=== PATIENT | male | born 1940 | race Caucasian/White ===

== ENCOUNTER 2017-05-24 11:09 | Inpatient (IN) ==
[2017-05-24] MEDS ORDERED: Albuterol 2.5 MG/3 ML NEBULIZER IH ONE (12:03)
[2017-05-24] MEDS ORDERED: CeFAZolin Syr 2,000MG/20 ML 2,000 MG/20 ML SYRINGE IVPB ONE (12:03)
[2017-05-24] MEDS ORDERED: Albuterol 2.5 MG/3 ML NEBULIZER ONE (12:12)
[2017-05-24] MEDS ORDERED: *HR* Rocuronium Bromide 50 MG/5 ML VIAL ONE ×2 (12:13→15:45)
[2017-05-24] MEDS ORDERED: Dexamethasone 4 MG/ML VIAL ONE ×2 (12:13→15:45)
[2017-05-24] MEDS ORDERED: Lidocaine -MPF 4% 5 ML AMPUL ONE ×2 (12:13→15:45)
[2017-05-24] MEDS ORDERED: *HR* Succinylcholine 200 MG/10 ML VIAL IVP ONE ×2 (12:13→15:45)
[2017-05-24] MEDS ORDERED: *HR* FentaNYL (PF) 100 MCG/2 ML VIAL ONE ×3 (12:13→17:12)
[2017-05-24] MEDS ORDERED: *HR* Midazolam HCl 2 MG/2 ML VIAL ONE ×2 (12:13→15:46)
[2017-05-24] MEDS ORDERED: *HR* Propofol 200 MG/20 ML VIAL IVP ONE ×2 (12:13→15:45)
[2017-05-24] MEDS ORDERED: Ondansetron 4 MG/2 ML VIAL ONE ×2 (12:13→15:45)
[2017-05-24] MEDS ORDERED: Lidocaine -MPF 2% 2 ML VIAL ONE ×2 (12:13→15:45)
[2017-05-24] MEDS ORDERED: Plasma-Lyte A (PH 7.4) 1,000 ML IVC SCH (12:15)
--- NOTE | 2017-05-24 12:28 | Anesthesia Evaluation PreOp ---
Date of Encounter: 05/24/17 Time of Encounter: 12:26 - Past History Planned Operation: Fem-Fem bypass graft Cardiac History: HTN, Hyperlipidemia, Cardiac Stent (patient denies any coronary stenting) Pulmonary History: Smoker, Pack/yr (1ppd x 60 years), COPD PROJECT BUILDER History: Other (Dementia, anxiety) Anesthesia History: No Prior Anesthetic Complications, Past Anesthesia (Left hip ,3 Left Knee replacements, Left RCR, Colon resection, bilteral iliac stents) Alcohol Use: none Drug use: none Medications and Allergies Aspirin Enteric Coated [Aspirin EC] 81 mg PO DAILY 10/06/14 [History] Clopidogrel [Plavix] 75 mg PO DAILY 10/06/14 [History] Diazepam [Valium] 10 mg PO BID 10/06/14 [History] Lisinopril [Zestril] 20 mg PO DAILY 10/06/14 [History] Finasteride [Proscar] 5 mg PO DAILY 05/16/17 [History] Rosuvastatin Calcium [Crestor] 40 mg PO DAILY 05/16/17 [History] 3 Allergy/AdvReac Type Severity Reaction Status Date / Time No Known Allergies Allergy Verified 05/24/17 12:30 - Meds/Allergy Pre-op Review Medications Reviewed: Yes Allergies Reviewed: Yes Beta Blockers on Current Med List: No Anesthesia Results - Labs Laboratory Tests 05/15/17 05/15/17 05/15/17 13:50 13:50 13:50 WBC 7.1 Hgb 14.0 Hct 42.7 Plt Count 183 INR 1.0 Sodium 140 Potassium 3.9 Chloride 106 Carbon Dioxide 27 BUN 17 Creatinine 0.88 Stress 05/18/17 EF-56% Mild Septal dyskenesis, otherwise normal LV function - Imaging EKG: report reviewed (SINUS RHYTHM WITH OCCASIONAL SUPRAVENTRICULAR PREMATURE COMPLEXES) Anesthesia Exam O2 Sat Height 1.73 m Height 1.73 m Height 1.73 m Weight 77.564 kg Weight 77.564 kg Weight 77.564 kg O2 Sat by Pulse Oximetry 97 O2 Sat by Pulse Oximetry 97 Vital Signs Temp Pulse Resp BP Pulse Ox 98.4 F 57 18 135/62 97 05/24/17 12:08 05/24/17 12:08 05/24/17 12:08 05/24/17 12:08 05/24/17 12:08 NPO (# of Hours): > 8 hrs Pain Scale: 0 Pain Scale Used: Numeric (1 - 10) - HEENT Pupil (Motor): Pupils equal, EOMI Mallampati: I Teeth: Edentulous Denture Type: Upper: Complete, Lower: Complete Oral Opening: Greater than 3 - PROJECT BUILDER LOC: Oriented PROJECT BUILDER Motor: Normal RUE, Normal LUE, Normal RLE, Normal LLE, Normal Face PROJECT BUILDER Sensory: Normal: RUE, LUE, RLE, LLE, Face - Cardiac Rhythm: Regular Murmur: None JVD: No Carotid Bruit: No - Pulmonary Breath Sounds: bilateral Clear Respiratory Effort: Symmetrical Anesthesia Assess/Plan ASA Score: 3 Modified Beckie Scale for Level of Consciousness: Cooperative, oriented, and tranquil Anesthetic Plan: General Autologous Blood: Yes Monitoring Plan: Standard Monitors, A-Line Recovery Plan: PACU
[2017-05-24] MEDS ORDERED: Heparin 1,000 UNITS/500 mL 500 ML ONE (12:34)
--- NOTE | 2017-05-24 16:56 | History & Physical Report ---
Date of Encounter: 05/24/17 Time of Encounter: 16:50 24 Hour HP Update - Instructions Instructions: If the History and Physical is less than 30 days old and was completed prior to A.M. admission and or procedure and has NOT been updated on calendar day of procedure please complete this update prior to performing procedure. - Update Patient reports changes in Medical Condition: No Changes in examination, assessment, or condition: No Changes in Medication: No Preop tests/diagnostics Reviewed: Yes Surgery Remains Indicated: Yes Consent for Planned Operative Procedure(s) Verified: Yes - Pre-Operative Checklist Preoperative Checklist Indicated: Yes Prophylactic Antibiotic Ordered: Yes (Vancomycin due to MRSA risk) Home Medications Include Beta Mulugeta: No Beta Mulugeta Taken Today (Day of Surgery): No Beta Mulu[place]a Taken Yesterday (Day Prior to Surgery): No Is VTE Prophylaxis Indicated?: Yes
[2017-05-24] MEDS ORDERED: Heparin 1,000 UNITS/500 mL 1,500 ML ONE (17:12)
[2017-05-24] MEDS ORDERED: Vancomycin 1,000 MG VIAL ONE (17:12)
[2017-05-24] MEDS ORDERED: Isovue-300 50 ML VIAL IVP ONE (17:13)
--- NOTE | 2017-05-24 17:33 | Discharge Summary ---
Orders not resulted at time of discharge: Pending orders 05/24/17 Red Blood Cells [BBK] Routine Date of Encounter: 05/25/17 Time of Encounter: 13:50 (SEEN BY DR. PERDOMO) - Discharge Diagnosis (1) Atherosclerosis of [place] arteries of extremities with intermittent claudication, bilateral legs Priority: Primary Status: Acute Comments: The patient underwent a right femoral endarterectomy and a FEM-FEM bypass. He was discharged in stable condition on postoperative day #1 without complications. (2) Essential hypertension Priority: Secondary Status: Chronic (3) Mixed hyperlipidemia Priority: Secondary Status: Chronic Comments: He was counseled regarding smoking cessation. 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 He was hemodynamically stable without evidence of ongoing blood loss. - Hospital Course Hospital course: Mr. Flores is a 77 year old male with hypertension, hyperlipidemia, tobacco abuse and COPD who was found to have disabling claudication. He underwent a femoral endarterectomy and a femoral to femoral artery bypass on 05/24/17. He tolerated the procedure well and was discharged on postoperative day # 1 without complications. Time spent discussing smoking cessation with patient: 3 to 10 minutes - Time Spent with Patient Total time spent providing and/or coordinating discharge services: - Discharge Medications Home Medications: Aspirin Enteric Coated [Aspirin EC] 81 mg PO HS 10/06/14 [History] Clopidogrel [Plavix] 75 mg PO HS 10/06/14 [History] Lisinopril [Zestril] 20 mg PO HS 10/06/14 [History] Finasteride [Proscar] 5 mg PO HS 05/16/17 [History] Rosuvastatin Calcium [Crestor] 40 mg PO HS 05/16/17 [History] Levalbuterol [Xopenex INH] 2 puff IH Q4-6H PRN 05/24/17 [History] OxyCODONE/APAP 5/325 [Percocet 5/325 MG] 1 each PO Q6HR PRN 5 Days #20 tablet [Rx] diazePAM [Valium] 10 mg PO HS 05/24/17 [History] Allergies/Adverse Reactions: 3 Allergy/AdvReac Type Severity Reaction Status Date / Time No Known Allergies Allergy Verified 05/24/17 12:56 Primary care physician: PCP NONE Procedure(s) Performed: Right Femoral artery endarterectomy and right common femoral to left common femoral artery bypass. Discharging clinician: Lino Massey Anticipated date of discharge: 05/25/17 - Patient Status Disposition: Home, Self-Care Condition: Fair - Discharge Instructions Instructions: Oxycodone/Acetaminophen (By mouth), Femoropopliteal Bypass (DC), Peripheral Vascular Disorders (DC) Follow Up With: Karuna Gutierres MD [Partnered Physician] - 07/05/17 11:00 am (Please arrive 20 minutes early for your appointment. If you have to cancel please call [phone] within 24 hours of your appointment. I sent an email to the customs patrol officer to see if we can get the appoinment moved up some) Lino Massey MD [Partnered Physician] - 07/11/17 3:50 pm () Additional Instructions: Remove groin dressings tomorrow. Keep surgical sites dry for total 5 days following surgery. Resume usual home medications. Follow-up with Dr. Massey as scheduled. Prescription for by mouth analgesia has been written for the patient upon discharge.
[2017-05-24] MEDS ORDERED: *HR* Morphine 10 MG/ML VIAL ONE (18:32)
[2017-05-24] MEDS ORDERED: *HR* Morphine 2 MG/ML SYRINGE IVP PRN (18:33)
[2017-05-24] MEDS ORDERED: MORPHINE SUL Oral CONC 10 MG/0.5 ML ORAL.SYG SL PRN (18:33)
[2017-05-24] MEDS ORDERED: *HR* Labetalol 100 MG/20 ML MDV IVP PRN (18:33)
--- NOTE | 2017-05-24 18:36 | Anesthesia Procedures ---
Date of Encounter: 05/24/17 Time of Encounter: 17:10 Procedures: Anesthesia - Arterial Line Consent obtained: written consent Time out performed: Yes Sedation: Fentanyl (mcg): 100 Supplemental Oxygen via Nasal Cannula (L/min): 2 Local Anesthetic: Lidocaine 1% Amount of Anesthetic used (mls): 1 Size (Gauge): 20 Length (inches): 1 3/4 Technique Used: sterile prep, guide wire technique, direct puncture technique Post-Procedure: line taped into place, dry sterile dressing placed Patient tolerated procedure: well, no complications Complications: none Site: Radial L Vitals: BP 126/80, HR 65, Spo2 99, rr 16
[2017-05-24] MEDS ORDERED: *HR* Heparin 5,000 UNIT/ML VIAL ONE (18:40)
[2017-05-24] MEDS ORDERED: Acetaminophen IV 1,000 MG/100 ML INFUS..BTL ONE (18:50)
[2017-05-24] MEDS ORDERED: EPHEDrine 50 MG/ML VIAL ONE (18:50)
[2017-05-24] MEDS ORDERED: Neostigmine Methylsulfate 3 MG/3 ML SYRINGE ONE (19:30)
--- NOTE | 2017-05-24 20:40 | Anesthesia Evaluation Post Op ---
Date of Encounter: 05/24/17 Time of Encounter: 20:40 - Vital Signs Vital Signs: Vital Signs/O2 Sat, Most Current Temp Pulse Resp BP Pulse Ox 97.5 F L 55 16 149/64 100 05/24/17 20:09 05/24/17 20:29 05/24/17 20:29 05/24/17 20:29 05/24/17 20:29 - Lungs Lungs: Clear Ascult./Percussion - Airway Airway: Non-obstructed - Cardiovascular Regular Rate - Mental Status Mental Status: Asleep with brisk response to light stimulation - Pain Pain Scale: 0 Pain Scale used: Numeric (1 - 10) - Nausea Vomiting Nausea Vomiting: Not Present - Hydration Hydration: NPO, Palmer catheter - Discharge PostOp Status: Transfer Patient to floor
--- NOTE | 2017-05-24 20:59 | Operative Note ---
Date of procedure: 05/24/17 Pre-op diagnosis: Peripheral vascular disease with rest pain Post-op diagnosis: same Procedure: 1. Right common and deep femoral artery endarterectomy. 2. Right common femoral to left common femoral artery bypass with 6mm PTFE graft. Complications: None Anesthesia: GETA Surgeon: Lino Massey Was there an integration assistant present: No Estimated blood loss (cc): 50 Specimen: Right femoral plaque Condition: stable Disposition: PACU Procedure in Detail: Indications: The patient is a 77 year old male with a history of peripheral vascular disease with ulceration. He was found to have occluded left common iliac, left external iliac and proximal left common femoral stents. Due to his symptoms, revascularization was recommended to reduce his symptoms and his risk of limb loss. Procedure: The patient was identified in the preoperative area. The risks, benefits, and alternatives of the procedure were discussed. All questions were answered. The patient was taken to the operating room and placed in supine position on the operating room table. After the induction of general endotracheal anesthesia, he was cleaned and draped in normal sterile fashion. An oblique incision was made over the right groin sharply. Hemostasis was obtained with electrocautery. Through a process of blunt, sharp, and electrocautery dissection, the right femoral vessels were dissected circumferentially and surrounded with vessel loops. An oblique incision was then made over the left groin sharply. Hemostasis was obtained with electrocautery. Through a process of blunt, sharp, and electrocautery dissection, the left femoral vessels were dissected circumferentially and surrounded with vessel loops. A stent could be palpated in the proximal left common femoral artery. A graft was tunneled between the right and left femoral incisions. The patient received 5000 units of heparin intravenously. An arteriotomy was then made in the right commn femoral artery. A large, partially occlusive plaque was noted to be present in the common femoral artery and extending into the deep femoral artery. Release of the distal vesel loop revealed minimal retrograde flow from the profunda femoris artery. The arteriotomy was extended onto the deep femroal artery. Using a dental freer a right common and deep femoral endarterectomy was performed. Endpoints were inspected and no elevated flaps were noted. The deep femoral artery was noted to have significant retrograde flow after the endarterectomy. The graft was then cut to fit the arterial defect. The graft was sutured in place to the artery with a running 6-0 Prolene. The vessels were flushed through the graft. Heparinized saline was infused into the graft lumen. The graft was clamped with an atraumatic clamp. Flow was restored in the right femoral vessels. Tension was applied to the left femoral artery vessel loops. An arteriotomy was made in the left common femoral artery up to the level of the stent and onto the superficial femroal artery. Inspection of the lumen revealed that the stnet was well encorporated into the vessel wall and could not be removed. The distal end of the graft was cut to fit the arteriotomy. The graft was anastamosed with a running 6-0 Prolene. Prior to completing the anastamosis, the left femoral vessels were flushed through the graft anastamosis and heparin was infused into the lumen. The anastamosis was completed and flow was restored in the left lower extremity. Thrombin and gelfoam were used at the proximal anastamosis. Polyphasic signals were noted distal to the anastamoses. The wounds were irrigated with antibiotic-containing saline. Platelet rich and platelet poor plasma were infused into the wounds. Meticulous hemostasis was obtained throughout the wound with electrocautery. Wounds were reapproximated with layers of 2-0 and 3-0 Vicryl. Skin was reapproximated with 3-0 Monocryl. Sterile dressing was applied. The patient was extubated and taken to recovery room in stable condition.
[2017-05-24] MEDS ORDERED: OXYCODONE Oral CONC 10 MG/0.5 ML ORAL.SYG SL PRN ×2 (21:03)
[2017-05-24] MEDS ORDERED: Acetaminophen 325 MG TABLET PO PRN (21:03)
[2017-05-24] MEDS ORDERED: 0.9 % Sodium Chloride 1,000 ML IVC SCH (21:03)
[2017-05-24] MEDS ORDERED: *HR* HYDROcodone/Acet 5/325 mg TABLET PO PRN (21:03)
[2017-05-24] MEDS ORDERED: Naloxone 0.4 MG/ML INJ IVP PRN (21:03)
[2017-05-24] MEDS ORDERED: Ondansetron 4 MG/2 ML VIAL IVP PRN (21:03)
[2017-05-24] MEDS ORDERED: Levalbuterol 1 PUFF INHALER IH PRN (21:03)
[2017-05-24] MEDS ORDERED: *HR* Labetalol 20 MG/4 ML SYRINGE IVP PRN (21:03)
[2017-05-24] MEDS ORDERED: Lisinopril 20 MG TABLET PO SCH (21:03)
[2017-05-24] MEDS ORDERED: Aspirin Enteric Coated 81 MG Tablet PO SCH (21:03)
[2017-05-24] MEDS ORDERED: diazePAM 10 MG TABLET PO SCH (21:03)
[2017-05-24] MEDS ORDERED: Finasteride 5 MG TABLET PO SCH (21:03)
[2017-05-24] MEDS ORDERED: *HR* OxyCODONE Immed Rel 5 MG TABLET PO PRN (21:03)
[2017-05-24] MEDS ORDERED: *HR* LORazepam 2 MG/ML VIAL IVP PRN (21:03)
[2017-05-24] MEDS: *HR* Metoprolol 5 MG/5 ML VIAL IVP SCH (22:10)
[2017-05-25] MEDS: *HR* Metoprolol 5 MG/5 ML VIAL IVP SCH ×3 (00:20→12:31)
[2017-05-25] MEDS ORDERED: ceFAZolin 2,000 MG in 0.9 % Sodium Chloride 100 ML IVPB SCH (00:30)
[2017-05-25 04:55] LABS: Basophils % 0.1 %; Hematocrit 37.3 % (37.5-50.1); Hemoglobin 12.7 g/dL (12.9-16.9); Immature Granulocytes % 0.3 % (0-4); Lymphocytes # 1.1 K/mcL (0.6-4.6); Mean Corpuscular Hemoglobin 32.2 pg (28.0-33.3); Mean Corpuscular Volume 94.7 fL (83.0-100.0); Mean Platelet Volume 11.3 fL (9.4-12.4); Monocytes # 0.4 K/mcL (0.0-1.3); Monocytes % 3.9 %; Neutrophils # 8.4 K/mcL (1.6-8.9); Platelet Count 174 K/mcL (140-400); Red Blood Count 3.94 M/mcL (4.19-5.50); Red Cell Distribution Width 12.4 % (11.5-14.5); Segmented Neutrophils % 84.7 %
[2017-05-25 05:14] LABS: BUN/Creatinine Ratio 16 (6-26); Blood Urea Nitrogen 15 mg/dL (8-23); Calcium 8.6 mg/dL (8.6-10.3); Carbon Dioxide 25 mEq/L (23-29); Chloride 107 mEq/L (98-107); Glucose 113 mg/dL (70-105); Osmolality,Calculated 290 (280-300); Potassium 4.2 mEq/L (3.5-5.1); Sodium 139 mEq/L (136-145); eGFR For African Americans > 60 (> 60); eGFR For Non-African Americans > 60 (> 60)
[2017-05-25] MEDS ORDERED: *HR* Heparin 5,000 UNIT/ML VIAL SQ SCH ×2 (06:00)
[2017-05-25 11:16] VITALS: BP 120/63
--- NOTE | 2017-05-25 13:53 | Discharge Summary ---
Orders not resulted at time of discharge: Pending orders 05/24/17 Red Blood Cells [BBK] Routine 05/24/17 20:08 Surgical Pathology [PTH] Routine Date of Encounter: 05/25/17 Time of Encounter: 13:51 - Discharge Diagnosis (1) PAD (peripheral artery disease) Priority: Primary Status: Acute Comments: Patient has significant lower extremity claudication. The patient has had previous interventions in [place]. Dr. Massey performed a femoral-femoral bypass graft with PTFE yesterday. Patient has no active symptoms in the left lower extremity today. Patient has multiphasic Doppler signals over the femoral -femoral graft. (2) COPD (chronic obstructive pulmonary disease) Priority: Secondary Status: Chronic Comments: Patient has chronic COPD Qualifiers: COPD type: unspecified COPD Qualified Code(s): J44.9 - Chronic obstructive pulmonary disease, unspecified (3) Hypertension Priority: Secondary Status: Chronic Comments: Patient is under medical treatment for chronic hypertension Qualifiers: Hypertension type: essential hypertension Qualified Code(s): I10 - Essential (primary) hypertension - Hospital Course Hospital course: Mr. Flores is a 77 year old male With significant lower extremity vascular occlusive disease. Patient has been treated at an outside hospital. Patient was seen by Dr. Massey. He underwent a femoral-femoral bypass graft to revascularize the lower extremity. Patient is felt fit for discharge on the afternoon of postoperative day #1. Instructions were given to the patient in regards to wound care. Patient is to follow-up with Dr. Massey. - Time Spent with Patient Total time spent providing and/or coordinating discharge services: - Discharge Medications Home Medications: Aspirin Enteric Coated [Aspirin EC] 81 mg PO HS 10/06/14 [History] Clopidogrel [Plavix] 75 mg PO HS 10/06/14 [History] Lisinopril [Zestril] 20 mg PO HS 10/06/14 [History] Finasteride [Proscar] 5 mg PO HS 05/16/17 [History] Rosuvastatin Calcium [Crestor] 40 mg PO HS 05/16/17 [History] Levalbuterol [Xopenex INH] 2 puff IH Q4-6H PRN 05/24/17 [History] OxyCODONE/APAP 5/325 [Percocet 5/325 MG] 1 each PO Q6HR PRN 5 Days #20 tablet [Rx] diazePAM [Valium] 10 mg PO HS 05/24/17 [History] Allergies/Adverse Reactions: 3 Allergy/AdvReac Type Severity Reaction Status Date / Time No Known Allergies Allergy Verified 05/24/17 12:56 Date of admission: 05/24/17 20:57 Primary care physician: PCP NONE Consults: None Procedure(s) Performed: Femoral-femoral bypass graft with 6 mm PTFE Discharging clinician: Miguel Quiñonez Anticipated date of discharge: 05/25/17 Exam Vital Signs, Last 4 Hours Temp Pulse Resp BP Pulse Ox 05/25/17 11:00 97.9 F 47 14 120/63 94 General: Present: Conversant, No Apparent Distress, Well developed HEENT: Present: Atraumatic Cardiac: Present: Reg Rate and Rhythm Lungs: Present: Decreased breath sounds Neuro: Present: Alert and responsive Abdomen: Present: Soft, Non-tender Vascular: Present: Normal capillary refill, Surgical incisions (Patient has dressings over the femoral incisions that are intact.). Absent: Clubbing, Cyanosis, Edema Skin: Present: No rashes noted on visualized skin - Patient Status Disposition: Home, Self-Care Condition: Fair Functional capacity at discharge: independent ambulation Overall status at discharge: patient is progressing back to baseline - Discharge Instructions Instructions: Oxycodone/Acetaminophen (By mouth), Femoropopliteal Bypass (DC) Follow Up With: Karuna Gutierres MD [Partnered Physician] - 07/05/17 11:00 am (Please arrive 20 minutes early for your appointment. If you have to cancel please call [phone] within 24 hours of your appointment. I sent an email to the radio electronics officer to see if we can get the appoinment moved up some) Lino Massey MD [Partnered Physician] - 07/11/17 3:50 pm () Additional Instructions: Remove groin dressings tomorrow. Keep surgical sites dry for total 5 days following surgery. Resume usual home medications. Follow-up with Dr. Massey as scheduled. Prescription for by mouth analgesia has been written for the patient upon discharge. - Diet and Activity Activity: increase activity as tolerated Diet: low fat, low cholesterol - VTE Documentation of Mechanical Device: Intermittent pneumatic compression device
== END 2017-05-25 14:09 | disposition home or self-care (01) | DRG 253 ==
LOC: SAMDAY 11:09 → 2NNU 20:57
PROVIDERS: ADMIT Surgery; ATTEND Surgery
PROC: VASFFBG (ICD-10-PCS; 2017-05-24 13:10)